=== PATIENT | female | born 1960 | race African-American/Black ===

== ENCOUNTER 2016-07-24 11:17 | Emergency (ER) | payer SELFPAY ==
[~2016-07-24] VITALS: Ht 165.1 cm; Wt 121.3 kg
[2016-07-24 11:19] VITALS: BP 128/84
== END 2016-07-24 13:32 | disposition home or self-care (01) ==
LOC: ED 12:52
DX: J20.8 Acute bronchitis due to other specified organisms (principal); J01.00 Acute maxillary sinusitis, unspecified; H66.002 Acute suppurative otitis media without spontaneous rupture of ear drum, left ear; I10 Essential (primary) hypertension; E03.9 Hypothyroidism, unspecified
CPT/HCPCS: 99283

== ENCOUNTER 2017-01-15 17:26 | Emergency (ER) | payer BC ==
[~2017-01-15] VITALS: Ht 165.1 cm; Wt 120.0 kg
[2017-01-15] MEDS ORDERED: POT25TAB PO (18:16)
[2017-01-15] MEDS ORDERED: NAPR500T3 PO (18:16)
[2017-01-15] MEDS ORDERED: HYDR25TA6 PO (18:16)
[2017-01-15] MEDS ORDERED: METO50TA82 PO (18:16)
[2017-01-15] MEDS ORDERED: LEVO150T5 PO (18:16)
[2017-01-15] MEDS ORDERED: AMLO5TAB2 PO (18:16)
[2017-01-15 18:20] LABS: HEMATOCRIT 42.5 % (34.6-47.8); HEMOGLOBIN 14.3 g/dL (11.7-16.4); WHITE BLOOD COUNT 8.2 x10^3/uL (3.4-10)
[2017-01-15 18:31] LABS: BLOOD UREA NITROGEN 13 mg/dL (7-18)
[2017-01-15] MEDS ORDERED: IBUPROFEN 200 MG TABLET ONE (20:15)
[2017-01-15 20:30] VITALS: BP 176/88
[2017-01-15] MEDS ORDERED: IBUPROFEN 200 MG TABLET PO ONE (20:30)
[2017-01-15] MEDS ORDERED: ACETAMINOPHEN 500 MG TABLET PO ONE (20:30)
== END 2017-01-15 20:57 | disposition home or self-care (01) ==
LOC: ED 20:37
DX: J20.9 Acute bronchitis, unspecified (principal); Z76.0 Encounter for issue of repeat prescription; I10 Essential (primary) hypertension; E03.9 Hypothyroidism, unspecified; Z88.0 Allergy status to penicillin; Z88.2 Allergy status to sulfonamides; Z88.6 Allergy status to analgesic agent
CPT/HCPCS: 36415; 71020; 80048; 82040; 84436; 84443; 85025; 93005; 99285